=== PATIENT | male | born 1980 | race American Indian/Alaskan Native ===

== ENCOUNTER 2018-06-26 09:56 | Emergency (ER) | payer OTHER ==
[2018-06-26] MEDS ORDERED: IBUPROFEN PO ONE (10:42)
[2018-06-26] MEDS ORDERED: NORCO 5/325 PO ONE (10:42)
--- NOTE | 2018-06-26 10:50 | Emergency Department Report ---
HPI - General Chief Complaint: Extremity Injury, Lower Time Seen by Provider: 06/26/18 10:35 - HPI HPI: Tello 25 The patient is a 37-year-old male presenting with a chief complaint right knee pain. 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 The patient states when he jumped through and landed he heard a pop in his right knee. Patient states he got up but his knee felt unstable. The patient states he continued the test by dragging a weighted dummy but states he had to eventually stop the test. Patient states his pain is currently a 4/10. Patient denies other complaints Location: Right knee Duration: [See above] Quality: Pain Severity: 07/29 Modifying factors: [see above] Context: [see above] Mode of transportation: [not driving] ED Past Medical Hx - Past Medical History Previous Medical History?: No - Surgical History Past Surgical History?: No - Family History Family history: no significant - Social History Smoking Status: Never Smoker Substance Use Type: None - Medications Home Medications: Home Medications Medication Instructions Recorded Confirmed Last Taken Type Cyclobenzaprine [Flexeril] 10 mg PO TID PRN #14 tablet 06/26/18 Unknown Rx HYDROcodone/APAP 5-325 [[employer] [place] 1 - 2 each PO Q6HR PRN #14 tablet 06/26/18 Unknown Rx 5/325] Ibuprofen [Motrin 800 MG tab] 800 mg PO Q8HR PRN #20 tablet 06/26/18 Unknown Rx ED Review of Systems ROS: Stated complaint: KNEE PAIN Other details as noted in HPI Constitutional: no symptoms reported Eyes: denies: eye pain ENT: denies: throat pain Respiratory: no symptoms reported Cardiovascular: denies: chest pain Endocrine: no symptoms reported Gastrointestinal: denies: abdominal pain Genitourinary: denies: dysuria Musculoskeletal: arthralgia, myalgia Neurological: denies: headache Physical Exam - Physical Exam Vital Signs: Vital Signs 06/26/18 10:27 Temperature 98.3 F Pulse Rate 105 H Respiratory 16 Rate Blood Pressure 130/81 O2 Sat by Pulse 96 Oximetry Physical Exam: GENERAL: The patient is well-developed well-nourished male lying on stretcher using cell phone appearing to be in acute distress. [] HEENT: Normocephalic. Atraumatic. Extraocular motions are intact. Patient has moist mucous membranes. NECK: Supple. Trachea midline CHEST/LUNGS: There is no respiratory distress noted. HEART/CARDIOVASCULAR: Regular. There is no tachycardia. 2+ right DP SKIN: There is no rash. There is no edema. There is no diaphoresis. NEURO: The patient is awake, alert, and oriented. The patient is cooperative. The patient has normal speech MUSCULOSKELETAL: There is pain with motion of the right knee. No deformity seen. ED Course Vital Signs 06/26/18 10:27 Temperature 98.3 F Pulse Rate 105 H Respiratory 16 Rate Blood Pressure 130/81 O2 Sat by Pulse 96 Oximetry ED Medical Decision Making - Radiology Data Radiology results: report reviewed (right knee x-ray), image reviewed (right knee x-ray) interpreted by me: Right knee x-ray-no acute fracture [facility] [address] [place] [address] XRay Report Signed Patient: ILENE AGUILAR MR#: [id number] : 1980 Acct:[id number] Age/Sex: 37 / M ADM Date: 06/26/18 Loc: ED Attending Dr: Ordering Physician: MATTHIAS TAVERAS MD Date of Service: 06/26/18 Procedure(s): XR knee 3V RT Accession Number(s): [id number] cc: MATTHIAS TAVERAS MD Fluoro Time In Minutes: RIGHT KNEE, 3 views: History: Right knee pain. The bony architecture is intact without evidence of fracture or dislocation. No significant soft tissue abnormality is seen. IMPRESSION: Normal right knee. Transcribed By: TTR Dictated By: KARINA MONTANO JR, MD Electronically Authenticated By: KARINA MONTANO JR, MD Signed Date/Time: 06/26/18 1105 DD/ 1105 TD/TT: 06/26/18 1105 - Differential Diagnosis knee sprain, anterior cruciate ligament injury, PCL injury, meniscus tear Critical care attestation.: If time is entered above; I have spent that time in minutes in the direct care of this critically ill patient, excluding procedure time. ED Disposition Clinical Impression: Acute pain of right knee Disposition: DC-01 TO HOME OR SELFCARE Is pt being admited?: No Does the pt Need Aspirin: No Condition: Stable Instructions: Arthralgia (ED) Additional Instructions: Return to the emergency department immediately should you develop worsening symptoms, fever, inability to tolerate food or liquid or any other concerns. Prescriptions: Cyclobenzaprine [Flexeril] 10 mg PO TID PRN #14 tablet PRN Reason: Muscle Spasm Ibuprofen [Motrin 800 MG tab] 800 mg PO Q8HR PRN #20 tablet PRN Reason: Pain, Moderate (4-6) HYDROcodone/APAP 5-325 [[employer] [place] 5/325] 1 - 2 each PO Q6HR PRN #14 tablet PRN Reason: Pain [facility] Care Provider[facility] - 3-5 Days MARIO DEGROOT MD [Staff Physician] - 3-5 Days (Dr. Degroot is an orthopedic surgeon. Please follow-up with him for further evaluation) Time of Disposition: 11:39
--- NOTE | 2018-06-26 11:09 | XRay Report ---
RIGHT KNEE, 3 views: History: Right knee pain. The bony architecture is intact without evidence of fracture or dislocation. No significant soft tissue abnormality is seen. IMPRESSION: Normal right knee.
[2018-06-26 12:16] VITALS: BP 132/78
== END 2018-06-26 12:15 | disposition home or self-care (01) ==
LOC: ED 09:56
DX: M25.561 Pain in right knee (principal)